=== PATIENT | female | born 1965 | race Caucasian/White ===

== ENCOUNTER 2023-02-23 07:13 | Outpatient (CLI) | payer BC ==
[2023-02-23 15:19] LABS: ALBUMIN 4.3 g/dL (3.2-5.5); ALBUMIN/GLOBULIN RATIO 1.6 (1.0-2.2); BILIRUBIN,TOTAL 1.1 mg/dL (0.2-1.0); CALCIUM 8.7 mg/dL (8.5-10.3); CREATININE 0.7 mg/dL (0.4-1.0); POTASSIUM 3.8 mmol/L (3.5-5.0)
[2023-02-23 15:27] LABS: T4 (THYROXINE) 5.71 ug/dL (6.09-12.23)
[2023-02-23 15:31] LABS: FREE T3 2.95 pg/mL (2.5-3.9)
[2023-02-23 15:32] LABS: FREE T4 (FREE THYROXINE) 0.82 ng/dL (0.58-1.64)
[2023-02-23 15:36] LABS: FERRITIN 36.9 ng/mL (11.0-306.8)
[2023-02-24 08:11] LABS: THYROID PEROXIDASE (TPO) AB 10 IU/mL (0-34)
[2023-02-24 20:08] LABS: THYROGLOBULIN ANTIBODY <1.0 IU/mL (0.0-0.9)
== END 2023-02-23 07:14 | disposition home or self-care (01) ==
LOC: LAB.S 07:13
PROVIDERS: ATTEND Registered Nurse
DX: F33.1 Major depressive disorder, recurrent, moderate (principal); F90.0 Attention-deficit hyperactivity disorder, predominantly inattentive type
CPT/HCPCS: 36415; 80053; 82728; 83090; 84436; 84439; 84480; 84481; 84482; 86376; 86800